=== PATIENT | male | born 1965 | race Two or more races ===

== ENCOUNTER → 2025-04-06 | Outpatient (BNVA) | payer MEDICAID, SELFPAY | END | disposition home or self-care (01) | PROVIDERS: PCP Nurse Practitioner Family; Referring Provider Nurse Practitioner Family; Visit Provider Nurse Practitioner Family | DX: Z00.00 Encounter for general adult medical examination without abnormal findings (principal); M25.562 Pain in left knee; I10 Essential (primary) hypertension; M25.462 Effusion, left knee; Z12.11 Encounter for screening for malignant neoplasm of colon; Z28.21 Immunization not carried out because of patient refusal; R01.1 Cardiac murmur, unspecified | CPT/HCPCS: 99214 ==

== ENCOUNTER → 2025-04-07 | Outpatient (BNVA) | payer MEDICAID, SELFPAY | END | disposition home or self-care (01) | PROVIDERS: PCP Nurse Practitioner Family; Referring Provider Nurse Practitioner Family; Visit Provider Nurse Practitioner Family | DX: Z23 Encounter for immunization (principal) | CPT/HCPCS: 90471; 90677; 90686; 99213; G0008; G0009 ==

== ENCOUNTER → 2025-04-17 | Outpatient (CLI) | payer MEDICAID, SELFPAY ==
--- NOTE | 2025-04-17 | XR_ITS ---
Examination: Knee, left, 3 views Technique: Knee AP, lateral, oblique 3 views Date and time of exam: April 17, 2025, 12:04 p.m. INDICATIONS: Left knee pain and swelling beginning 2 months ago. FINDINGS: Moderate to advanced osteoarthritis medial joint space Moderate osteoarthritis patellofemoral joint Large knee effusion No fracture IMPRESSION: Moderate to advanced osteoarthritis medial joint space Large knee effusion seen with internal derangement of the knee
== END | disposition home or self-care (01) ==
PROVIDERS: PCP Nurse Practitioner Family; Referring Provider Nurse Practitioner Family; Visit Provider Nurse Practitioner Family
DX: M17.12 Unilateral primary osteoarthritis, left knee (principal); M25.462 Effusion, left knee; M23.8X2 Other internal derangements of left knee
CPT/HCPCS: 73562